=== PATIENT | male | born 1980 | race African-American/Black ===

== ENCOUNTER 2019-09-09 18:59 | Emergency (ER) | payer SELFPAY ==
[~2019-09-09] VITALS: Ht 177.8 cm; Wt 110.0 kg
[2019-09-09] MEDS ORDERED: SODIUM CHLORIDE 0.9% 1,000 ML IV ONE (19:20)
[2019-09-09] MEDS ORDERED: ONDANSETRON HCL 4MG/2ML INJ IV STA (19:20)
[2019-09-09] MEDS ORDERED: LORAZEPAM 2MG/ML CPJ IV ONE ×2 (19:30→23:15)
[2019-09-09] MEDS ORDERED: OLANZAPINE 10 MG/VIAL IM ONE (20:30)
[2019-09-09 21:03] LABS: EOSINOPHILS % 3.8 % (0.0-5.0); HEMATOCRIT. 39.5 % (42.0-52.0); HEMOGLOBIN. 13.4 g/dL (14.0-18.0); LYMPHOCYTES % 48.8 % (20.0-50.0); MEAN CORPUSCULAR VOLUME 82.9 fL (80.0-94.0); MEAN PLATELET VOLUME 8.2 fl (7.4-10.4); NEUTROPHILS % 41.4 % (40.0-76.0); PLATELET 198 x1000/uL (130-400); RED BLOOD CELL COUNT 4.76 mill/uL (4.7-6.1); RED CELL DISTRIBUTION WIDTH 14.2 % (11.6-14.6)
[2019-09-09 21:09] LABS: CHLORIDE 113 mEq/L (98-107)
[2019-09-09 21:18] LABS: CREATINE KINASE 299 IU/L (39-308)
[2019-09-09 21:21] LABS: CREATINE KINASE MB FRACTION 1.8 ng/mL (0.5-3.6)
[2019-09-09 21:24] LABS: ETHANOL BLOOD 297 mg/dL
[2019-09-09 23:56] LABS: CLARITY URINE CLEAR (CLEAR); COLOR URINE YELLOW (YELLOW); KETONES URINE NEGATIVE (NEGATIVE); LEUKOCYTE ESTERASE URINE NEGATIVE (NEGATIVE); NITRITE URINE NEGATIVE (NEGATIVE); OCCULT BLOOD URINE NEGATIVE (NEGATIVE); PH URINE 5.5 (4.5-8.0); PROTEIN URINE NEGATIVE (NEGATIVE); SPECIFIC GRAVITY URINE 1.015 (1.005-1.030); UROBILINOGEN URINE 0.2 E.U./dL (0.2-1.0)
[2019-09-10 00:09] LABS: *AMPHETAMINES SCREEN URINE NEGATIVE (NEGATIVE); *BARBITURATES SCREEN URINE NEGATIVE (NEGATIVE); *BENZODIAZEPINES SCREEN URINE NEGATIVE (NEGATIVE); *COCAINE SCREEN URINE NEGATIVE (NEGATIVE)
[2019-09-10 00:10] LABS: CANNABINOID URINE SCREEN NEGATIVE (NEGATIVE); METHADONE URINE SCREEN NEGATIVE (NEGATIVE); OPIATES URINE SCREEN NEGATIVE (NEGATIVE); PHENCYCLIDINE URINE SCREEN NEGATIVE (NEGATIVE)
[2019-09-10 06:00] VITALS: BP 123/79
== END 2019-09-10 08:13 | disposition home or self-care (01) ==
LOC: ER 18:59
DX: T51.0X1A Toxic effect of ethanol, accidental (unintentional), initial encounter (principal); G93.40 Encephalopathy, unspecified; F23 Brief psychotic disorder; Y92.89 Other specified places as the place of occurrence of the external cause
CPT/HCPCS: 36415; 80053; 80305; 80320; 81003; 82140; 82550; 82553; 83690; 83880; 84443; 84484; 85025; 93005; 96361; 96372; 96374; 96375; 96376; 99284; J2060; J2405; J3490; J7030; Z7610; G0480